=== PATIENT | female | born 1955 | race African-American/Black ===

== ENCOUNTER 2016-08-15 09:06 | Emergency (ER) | payer OTHER ==
[~2016-08-15] VITALS: Ht 157.5 cm; Wt 86.2 kg
[~2016-08-15 09:06] MED LIST: ASPIRIN81 M1 PO; COZAAR50 MG PO; GLUCOPHAGE1000 MG PO; TENORMIN100 MG PO; ZOCOR20 MG PO
[2016-08-15 09:11] VITALS: BP 145/93
--- NOTE | 2016-08-15 09:15 | NUR ---
Patient amulated to bed 01.
--- NOTE | 2016-08-15 09:26 | NUR ---
DR. SHINE EVALUATING PATIENT AT BEDSIDE.
--- NOTE | 2016-08-15 09:49 | NUR ---
X-Ray at bedside.
--- NOTE | 2016-08-15 10:45 | NUR ---
Patient discharged with v/s stable. Written and verbal after care instructions given and explained. Patient alert, oriented and verbalized understanding of instructions. Ambulatory with steady gait with daughter. All questions addressed prior to discharge. ID band removed. Patient advised to follow up with PMD. Rx of motrin, azithromycin, codeine/promethazine given. Patient educated on indication of medication including possible reaction and side effects. Opportunity to ask questions provided and answered.
[2016-08-15 10:47] VITALS: BP 118/80
== END 2016-08-15 10:45 | disposition home or self-care (01) ==
LOC: MED 09:06
DX: J02.9 Acute pharyngitis, unspecified (principal); J06.9 Acute upper respiratory infection, unspecified; E11.9 Type 2 diabetes mellitus without complications; I10 Essential (primary) hypertension

== ENCOUNTER 2022-08-12 08:44 | Emergency (ER) | payer OTHER ==
[~2022-08-12] VITALS: Ht 160 cm; Wt 80.3 kg
[~2022-08-12 08:44] MED LIST changes: +ASPI-1822 PO; -ASPIRIN81 M1 PO; +ATEN100T6 PO; -COZAAR50 MG PO; -GLUCOPHAGE1000 MG PO; +LOSA50TA57 PO; +METF-1274 PO; +SIMV-372 PO; -TENORMIN100 MG PO; -ZOCOR20 MG PO
[2022-08-12 08:55] VITALS: BP 141/79
--- NOTE | 2022-08-12 08:59 | NUR ---
67/F WALKED IN C/O B/L KNEE PAIN ONSET 1 WK. DENIES FALL OR INJURY. ACCOMPANIED BY SON. AAO4, AMBULATORY, VITALS STABLE. NKA PMH: DM,HTN
--- NOTE | 2022-08-12 08:59 | NUR ---
AMBULATED TO BED 11
--- NOTE | 2022-08-12 09:17 | NUR ---
XR AT BEDSIDE
[2022-08-12] MEDS ORDERED: MELO-176 PO (10:20)
== END 2022-08-12 10:20 | disposition home or self-care (01) ==
LOC: MED 08:44
DX: M13.862 Other specified arthritis, left knee (principal); M13.861 Other specified arthritis, right knee; E11.9 Type 2 diabetes mellitus without complications; I10 Essential (primary) hypertension; Z79.4 Long term (current) use of insulin; Z79.899 Other long term (current) drug therapy
CPT/HCPCS: 73560; 99283